=== PATIENT | female | born 2000 | race Caucasian/White ===

== ENCOUNTER 2021-07-19 22:38 | Emergency (ER) | payer OTHER ==
[~2021-07-19] VITALS: Ht 157.5 cm; Wt 86.2 kg
[2021-07-19 23:09] VITALS: BP 112/73
--- NOTE | 2021-07-19 23:32 | NUR ---
PATIENT AMBULATED TO BED 2 WITH A STEADY GAIT.
[2021-07-20] MEDS ORDERED: KETOROLAC 30 MG/ML VIAL IVP ONE (00:10)
[2021-07-20 00:25] LABS: BASOPHILS % (AUTO) 0.4 % (0.0-2.0); EOSINOPHILS # (AUTO) 0.1 K/uL (0-0.4); EOSINOPHILS % (AUTO) 1.4 % (0.0-4.0); HEMATOCRIT 38.8 % (36-48); HEMOGLOBIN 13.1 g/dL (12.0-16.0); LYMPHOCYTES # (AUTO) 3.9 K/uL (2.5-16.5); LYMPHOCYTES % (AUTO) 41.8 % (20.5-51.1); MEAN CORPUSCULAR HEMOGLOBIN 29 pg (27-31); MEAN CORPUSCULAR HGB CONC 34 g/dL (33-37); MEAN CORPUSCULAR VOLUME 87.4 fL (80-94); MONOCYTES # (AUTO) 0.7 K/uL (0.8-1.0); MONOCYTES % (AUTO) 7.1 % (1.7-9.3); NEUTROPHILS # (AUTO) 4.6 K/uL (1.8-7.7); NEUTROPHILS % (AUTO) 49.3 % (42.2-75.2); PLATELET COUNT (AUTO) 242 K/uL (140-450); RED BLOOD CELL COUNT(AUTO) 4.44 MIL/uL (4.20-5.40); RED CELL DISTRIBUTION WIDTH 12.4 % (11.6-13.7); WHITE BLOOD COUNT (AUTO) 9.4 K/uL (4.8-10.8)
[2021-07-20 00:52] LABS: ALBUMIN 3.3 g/dL (3.4-5.0); ANION GAP 11.5 (8-16); CARBON DIOXIDE 29.7 mmol/L (21-32); CREATININE 0.7 mg/dL (0.6-1.3); POTASSIUM 4.2 mmol/L (3.5-5.1); TOTAL BILIRUBIN 0.6 mg/dL (0.0-1.0)
--- NOTE | 2021-07-20 00:53 | NUR ---
ADMINISTERED TORADOL IM L DELTOID. TOLERATED WELL.
--- NOTE | 2021-07-20 01:37 | NUR ---
patient ambulated to the bathroom for urine collection
[2021-07-20 01:45] LABS: APPEARANCE,URINE CLEAR (CLEAR); BILIRUBIN,URINE NEGATIVE (NEGATIVE); BLOOD, URINE NEGATIVE (NEGATIVE); COLOR,URINE YELLOW (YELLOW); LEUKOCYTE ESTERASE ,URINE NEGATIVE (NEGATIVE); NITRITE, URINE NEGATIVE (NEGATIVE); UGLUCOSE NEGATIVE (NEGATIVE)
[2021-07-20] MEDS ORDERED: IBUP-2213 PO (02:01)
[2021-07-20 02:16] VITALS: BP 112/73
== END 2021-07-20 02:16 | disposition home or self-care (01) ==
LOC: MED 22:38
DX: R10.9 Unspecified abdominal pain (principal); Z79.899 Other long term (current) drug therapy
CPT/HCPCS: 36415; 80053; 81003; 81025; 85025; 96372; 99283; J1885

== ENCOUNTER 2021-12-18 11:27 | Emergency (ER) | payer OTHER ==
[~2021-12-18] VITALS: Ht 157.5 cm; Wt 87.5 kg
[~2021-12-18 11:27] MED LIST: IBUP-2213 PO
[2021-12-18 11:30] VITALS: BP 125/83
--- NOTE | 2021-12-18 11:40 | NUR ---
21 y/o female c/o lower abdominal pain x 5 days. Hypogastric region, non-radiating, intermittent, 4/10 dull, worsening with movement. Tried Tylenol without relief. Denies fever, chills, nvd, dysuria. Pain noted with palpation. 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 Reports feeling constipated and straining to pass BM. Bowel sounds active x4. LBM yesterday. PMH: fibroids NKA
--- NOTE | 2021-12-18 12:10 | NUR ---
Dr Moy at bedside for evaluation
--- NOTE | 2021-12-18 13:32 | NUR ---
Ultrasound at bedside.
[2021-12-18] MEDS ORDERED: KETOROLAC 30 MG/ML VIAL IM ONE (15:05)
--- NOTE | 2021-12-18 15:05 | NUR ---
pt c/o new onset of abdominal pain, 11/07. made aware
[2021-12-18 15:26] VITALS: BP 122/62
--- NOTE | 2021-12-18 15:26 | NUR ---
Patient discharged with v/s stable. Written and verbal after care instructions given and explained. Patient verbalized understanding. Ambulatory with steady gait. All questions addressed prior to discharge. Advised to follow up with PMD.
== END 2021-12-18 15:26 | disposition home or self-care (01) ==
LOC: MED 11:27
DX: O26.891 Other specified pregnancy related conditions, first trimester (principal); Z3A.01 Less than 8 weeks gestation of pregnancy
CPT/HCPCS: 76830; 81002; 81025; 96372; 99284; J1885; Q0092

== ENCOUNTER 2022-02-03 20:23 | Emergency (ER) | payer OTHER ==
[~2022-02-03] VITALS: Ht 157.5 cm; Wt 86.2 kg
[2022-02-03 22:06] VITALS: BP 120/67
--- NOTE | 2022-02-03 22:13 | NUR ---
TO LOBBY FOLLOWING TRIAGE
[2022-02-04] MEDS ORDERED: BACITRACIN OINT 500 UNITS/GM PKT TP ONE (01:05)
[2022-02-04] MEDS ORDERED: AMOX-1230 PO (01:07)
[2022-02-04 01:47] VITALS: BP 131/64
--- NOTE | 2022-02-04 01:48 | NUR ---
Patient discharged with v/s stable. Written and verbal after care instructions given and explained. Patient alert, oriented and verbalized understanding of instructions. Ambulatory with steady gait. All questions addressed prior to discharge. ID band removed. Patient advised to follow up with PMD. Rx SENT TO PHARMACY. Patient educated on indication of medication including possible reaction and side effects. Opportunity to ask questions provided and answered.
== END 2022-02-04 01:48 | disposition home or self-care (01) ==
LOC: MED 20:23
DX: S61.451A Open bite of right hand, initial encounter (principal); W54.0XXA Bitten by dog, initial encounter; Y93.89 Activity, other specified; Y92.89 Other specified places as the place of occurrence of the external cause; Y99.8 Other external cause status
CPT/HCPCS: 73130; 90471; 90715; 99283

== ENCOUNTER 2022-09-20 15:01 | Emergency (ER) | payer OTHER ==
[~2022-09-20] VITALS: Ht 157.5 cm; Wt 100.2 kg
[~2022-09-20 15:01] MED LIST changes: +AMOX-1230 PO
[2022-09-20 15:34] VITALS: BP 139/84
--- NOTE | 2022-09-20 17:36 | NUR ---
AMB. TO BED 3 WITH NO DIFF.
--- NOTE | 2022-09-20 17:50 | NUR ---
Patient discharged with v/s stable. Written and verbal after care instructions given and explained. Patient alert, oriented and verbalized understanding of instructions. Ambulatory with steady gait. All questions addressed prior to discharge. ID band removed. Patient advised to follow up with PMD. Rx of TYLENOL, IBUPROFEN, ZOFRAN given. Patient educated on indication of medication including possible reaction and side effects. Opportunity to ask questions provided and answered.
[2022-09-20] MEDS ORDERED: LIDOCAINE MPF 1% 10 MG/ML VIAL INJ ONE (18:00)
[2022-09-20] MEDS ORDERED: IBUP-2213 PO (19:29)
[2022-09-20] MEDS ORDERED: SULF-58 PO (19:29)
--- NOTE | 2022-09-20 19:30 | NUR ---
Assumed care of patient at change of shift. Introduced self to patient, positioned patient for comfort and safety w/ bed to low position sr up, continue to monitor. Patient is s/p I&D abscess of buttock, awaiting dc instructions.
[2022-09-20 19:43] VITALS: BP 125/71
== END 2022-09-20 19:42 | disposition home or self-care (01) ==
LOC: MED 15:01
DX: L02.31 Cutaneous abscess of buttock (principal); Z79.899 Other long term (current) drug therapy
CPT/HCPCS: 10060; 99284; J2001

== ENCOUNTER 2023-12-02 15:39 | Emergency (ER) | payer OTHER ==
[~2023-12-02] VITALS: Ht 157.5 cm; Wt 81.6 kg
[~2023-12-02 15:39] MED LIST changes: +SULF-58 PO
[2023-12-02 15:44] VITALS: BP 140/72; PULSE 80; RESP 14; TEMP 97.6; O2SAT 94
[2023-12-02 17:04] LABS: APPEARANCE,URINE CLEAR (CLEAR); BILIRUBIN,URINE NEGATIVE (NEGATIVE); BLOOD, URINE NEGATIVE (NEGATIVE); COLOR,URINE YELLOW (YELLOW); LEUKOCYTE ESTERASE ,URINE NEGATIVE (NEGATIVE); NITRITE, URINE NEGATIVE (NEGATIVE); PROTEIN,URINE NEGATIVE (NEGATIVE); UGLUCOSE NEGATIVE (NEGATIVE); UROBILINOGEN,URINE 0.2 EU/dL (0.2 - 1)
[2023-12-02] MEDS ORDERED: METH1ADH21 TP (17:21)
[2023-12-02] MEDS ORDERED: NITR100C7 PO (17:21)
[2023-12-02] MEDS: KETOROLAC 30 MG/ML VIAL IM ONE (17:22)
[2023-12-02 17:56] VITALS: BP 107/54; PULSE 69; RESP 20; TEMP 97.6; O2SAT 99
== END 2023-12-02 17:56 | disposition home or self-care (01) ==
LOC: MED 15:39
DX: N39.0 Urinary tract infection, site not specified (principal); M54.50 Low back pain, unspecified; M54.6 Pain in thoracic spine; M79.651 Pain in right thigh; Z79.899 Other long term (current) drug therapy
CPT/HCPCS: 81003; 81025; 87086; 96372; 99283; J1885

== ENCOUNTER 2024-02-22 23:50 | Emergency (ER) | payer OTHER ==
[~2024-02-22] VITALS: Ht 157.5 cm; Wt 99.8 kg
[~2024-02-22 23:50] MED LIST changes: +METH1ADH21 TP; +NITR100C7 PO
[2024-02-22 23:56] VITALS: BP 132/75; PULSE 86; RESP 18; TEMP 98; O2SAT 99
[2024-02-23] MEDS: KETOROLAC 60 MG/2 ML VIAL IM ONE (00:21)
[2024-02-23] MEDS ORDERED: IBUP-2213 PO (00:46)
[2024-02-23] MEDS ORDERED: ACET-8905 PO (00:46)
== END 2024-02-23 00:03 | disposition home or self-care (01) ==
LOC: MED 23:50
DX: M25.551 Pain in right hip (principal); M54.50 Low back pain, unspecified; R03.0 Elevated blood-pressure reading, without diagnosis of hypertension; Z79.899 Other long term (current) drug therapy; V89.2XXA Person injured in unspecified motor-vehicle accident, traffic, initial encounter; Y93.89 Activity, other specified; Y92.89 Other specified places as the place of occurrence of the external cause; Y99.8 Other external cause status
CPT/HCPCS: 81025; 96372; 99283; J1885